=== PATIENT | female | born 1970 | race African-American/Black ===

== ENCOUNTER 2016-09-07 17:52 | Emergency (ER) | payer OTHER ==
[2016-09-07 18:06] VITALS: BP 143/79
[2016-09-07] MEDS ORDERED: Tetan/Diph/Pertus SYR(Tdap)* 0.5 ML SYR(BOOSTRIX) use SYR IM ONE (18:21)
--- NOTE | 2016-09-07 18:42 | RAD ---
Indication: Puncture wound. 3 views of the right foot demonstrate no fracture. No evidence of radiopaque foreign body is identified. IMPRESSION: No fracture or radiopaque foreign body is identified.
--- NOTE | 2016-09-07 19:15 | UC ---
Lower Extremity/Ankle HPI - HPI Summary HPI Summary: TWO WEEKS AGO STEPPED ON SOMETHING SHARP (UNKNOWN) WITH RIGHT FOOT. SINCE THAT TIME HAS HAD BUMP IN PUNCTURED AREA. TETANUS STATUS UNKNOWN. YESTERDAY WORE VERY HIGH HEELS AND AREA ON FOOT SEEMS AGGRIVATED AGAIN. - History of Current Complaint Chief Complaint: UCLowerExtremity Stated Complaint: FOOT INJURY, STEPPED ON SOMETHING SHARP Time Seen by Provider: 09/07/16 18:11 Hx Obtained From: Patient Hx Last Menstrual Period: now Onset/Duration: Sudden Onset, Lasting Weeks, Still Present Severity Initially: Moderate Severity Currently: Moderate Pain Intensity: 4 Pain Scale Used: 0-10 Numeric Aggravating Factor(s): Standing, Ambulation, Other - HIGH HEELS Alleviating Factor(s): Rest Able to Bear Weight: Yes - Risk Factors Gout Risk Factors: Negative DVT Risk Factors: Negative Septic Arthritis Risk Factor: Negative - Allergies/Home Medications Allergies/Adverse Reactions: Allergies Allergy/AdvReac Type Severity Reaction Status Date / Time No Known Allergies Allergy Verified 09/07/16 18:07 Home Medications: Home Medications Ibuprofen TAB* [Advil TAB*] 09/07/16 [History] PMH/Surg Hx/FS Hx/Imm Hx Previously Healthy: Yes Endocrine History Of: Denies: Diabetes, Thyroid Disease Cardiovascular History Of: Denies: Cardiac Disorders, Hypertension Respiratory History Of: Denies: COPD, Asthma GI/ History Of: Denies: Ulcer - Surgical History Surgical History: Yes Surgery Procedure, Year, and Place: ruptured cyst abd 2008 - Family History Known Family History: Positive: Hypertension - strong history in both parents - Social History Occupation: Employed Full-time Lives: With Family Alcohol Use: Occasionally Substance Use Type: None Smoking Status (MU): Never Smoked Tobacco Review of Systems Constitutional: Negative Skin: Other - PUNCTURE WOUND RIGHT FOOT Eyes: Negative ENT: Negative Respiratory: Negative Cardiovascular: Negative Gastrointestinal: Negative Genitourinary: Negative Motor: Negative Neurovascular: Negative Musculoskeletal: Negative Neurological: Negative Psychological: Negative All Other Systems Reviewed And Are Negative: Yes Physical Exam Triage Information Reviewed: Yes Appearance: Well-Appearing, No Pain Distress, Well-Nourished, Thin Vital Signs: Initial Vital Signs Temp 97.7 F 09/07/16 18:01 Pulse 93 09/07/16 18:01 Resp 12 09/07/16 18:01 BP 143/79 09/07/16 18:01 Pulse Ox 100 09/07/16 18:01 Vital Signs Reviewed: Yes Eye Exam: Normal Eyes: Positive: Conjunctiva Clear ENT Exam: Normal ENT: Positive: Normal ENT inspection, Hearing grossly normal, TMs normal Dental Exam: Normal Neck exam: Normal Neck: Positive: Supple, Nontender, No Lymphadenopathy Respiratory Exam: Normal Respiratory: Positive: Chest non-tender, Lungs clear, Normal breath sounds, No respiratory distress, No accessory muscle use Cardiovascular Exam: Normal Cardiovascular: Positive: RRR, No Murmur, Pulses Normal, Brisk Capillary Refill Abdominal Exam: Normal Abdomen Description: Positive: Nontender, No Organomegaly, Soft Musculoskeletal Exam: Normal Musculoskeletal: Positive: Strength Intact, ROM Intact Neurological Exam: Normal Psychological Exam: Normal Skin: Positive: Other - PUNCTURE WOUND RIGHT FOOT Lower Extremity Course/Dx - Differential Dx/Diagnosis Differential Diagnosis/HQI/PQRI: Fracture (Closed), Fracture (Open), Puncture Wound, Sprain, Strain Provider Diagnoses: RIGHT FOOT PUNCTURE WOUND. TETANUS PROPHYLAXIS Discharge - Discharge Plan Condition: Stable Disposition: HOME Patient Education Materials: Puncture Wound (ED) Referrals: Marla Cunningham MD [Primary Care Provider] - Additional Instructions: daily warm epsom salt soaks and extra padding to foot are recommended.
== END 2016-09-07 19:07 | disposition home or self-care (01) ==
LOC: UCEAST 17:52
DX: S91.331A Puncture wound without foreign body, right foot, initial encounter (principal); W26.9XXA Contact with unspecified sharp object(s), initial encounter; Y93.9 Activity, unspecified; Y92.9 Unspecified place or not applicable; Z23 Encounter for immunization
CPT/HCPCS: 90471; 90715; 99211; G0463